=== PATIENT | male | born 1975 | race Caucasian/White ===

== ENCOUNTER 2017-11-12 11:00 | Emergency (ER) | payer OTHER, SELFPAY ==
[2017-11-12 11:28] VITALS: BP 134/84; PULSE 75; RESP 16; TEMP 37.1; O2SAT 98
--- NOTE | 2017-11-12 11:48 | DI.RAD_ITS ---
SYMPTOMS/DIAGNOSIS: CRUSH INJURY DISTAL FINGER RIGHT LITTLE FINGER: Three views. There is a nondisplaced fracture of the terminal tuft of the right little finger. There is soft tissue swelling of the right little finger distally. No other fractures or dislocations are seen. No radiopaque foreign bodies are seen in the soft tissues. IMPRESSION: Nondisplaced fracture of the terminal tuft of the distal phalanx of the right little finger.
--- NOTE | 2017-11-12 11:50 | W.ED.GENAD ---
Discharge Plan Disposition Patient Disposition: HOME Condition: Fair Discharge Details Chief Complaint: Orthopedic Clinical Impression: Closed fracture of tuft of distal phalanx of finger Primary Care Provider: Andrew Angela ED Provider: Radha Torres Home Meds and New Rx's Prescriptions: Continue epinephrine 0.3 MG/0.3 ML auto-injector 0.3 mg IM PRN RF: 0 fluticasone [Flovent HFA] 12 GM HFA aerosol inhaler 2 puff Inhalation BID Qty: 1 RF: 11 albuterol sulfate [ProAir HFA] 8.5 GM HFA aerosol inhaler 2 puff Inhalation Q4H PRN Qty: 3 RF: 4 Diclofenac Sodium 50 MG TABLET.DR 50 mg PO TID Qty: 30 RF: 0 Discharge Instructions Instructions: Finger Fracture (ED) Additional Instructions: Encourage rest, ice, elevation. Tylenol and/or ibuprofen as needed for discomfort. Keep splint on until evaluated by orthopedics. Please call orthopedics tomorrow to schedule follow-up appointment. Please monitor for signs of infection including fever/chills, increased pain, discharge, redness or other new/worsening symptoms. If these arise please seek care urgently once again. Referrals: Alex Corbett MD [ [facility]FF [facility]YSICIAN] - ([phone]) Discharge Data Discharge Date/Time-TO BE ENTERED AT DEPARTURE: 11/12/17 14:00 Medical Decision Making MDM Narrative Medical decision making narrative: Patient presents today with chief complaint of right pinky pain. He reports that 2 days ago he crushed the finger. On exam, he has notable swelling, ecchymosis circumferentially about the distal phalanx of the right fifth digit. Sensation is intact. He was questioning trephination of the nail but the ecchymosis under the nail is quite minimal and located just at the nail bed. Advised against trephination at this time as it is unlikely to help with his discomfort. Patient has not taken anything as of yet for discomfort. He will be given ibuprofen, Tylenol and will obtain imaging of the affected finger X-ray reviewed by myself as well as radiologist, this is significant for fracture to the distal tuft of the distal phalanx. Nondisplaced Reviewed findings with the patient. He will be placed in a splint and follow-up with orthopedics. Encouraged rest, ice, elevation. Tylenol and/or ibuprofen as needed for discomfort. Patient tetanus is not today, we will update this today. We discussed signs symptoms of infection when to seek care urgently once again. He will contact orthopedics today to schedule follow-up. All questions and concerns were addressed and he is in agreement with this plan. HPI - General Adult General Mode of arrival: ambulatory. Date/Time Provider Initiated Documentation: 11/12/17 11:43. Limitations to Documentation: no limitations. Information obtained by: patient. HPI Narrative: Patient is a 42-year-old [id number]-[id number] male presenting today with chief complaint of right pinky finger injury. He reports that 2 days ago, while at work, he dropped a 30 pound part on the digit. Since that time has been ecchymosis, swelling and pain over the distal phalanx. Denies any altered sensation. Denies other injury at the time of the incident. Reports that he did have blood extruding from the distal aspect of the nail initially. This is since subsided. Denies any fevers or chills Related Data Home Medications Medication Instructions Recorded Confirmed epinephrine 0.3 mg IM PRN 12/10/13 11/12/17 fluticasone [Flovent HFA] 2 puff INHALATION BID #1 inhaler 12/12/13 11/12/17 albuterol sulfate [ProAir HFA] 2 puff INHALATION Q4H PRN #3 07/18/16 11/12/17 inhaler Allergies Allergy/AdvReac Type Severity Reaction Status Date / Time bee pollen Allergy Severe Swelling/Ed Unverified 11/12/17 11:30 clay General Stated Complaint: Orthopedic ALBERT: 5 Review of Systems Constitutional Reports as per HPI, Denies chills and Denies fever(s) Musculoskeletal Reports as per HPI, Denies numbness and Denies tingling Integumentary/Breasts Reports as per HPI Neurologic Reports as per HPI, Denies numbness and Denies tingling PFSH Social History Smoking/Tobacco Use Status: Never Surgical History Tonsillectomy Exam Const General: cooperative, healthy appearing, comfortable, no acute distress, well developed and well groomed Nutritional Appearance: average body habitus Orientation: alert and awake Eyes General: appearance normal, both eyes and all related structures Resp Effort & Inspection: normal respiratory effort, able to speak in complete sentences and no respiratory distress Cardio Rate: regular rate Rhythm: regular rhythm Skin General skin exam: ecchymosis Neuro General: alert and awake Cognition: normal cognition Speech: speech normal Gait: normal gait Sensory Exam: no sensory deficits noted Extrem General: abnormal to inspection (Exam the patient's right upper extremity significant for circumferential ecchymosis with associated swelling at the distal phalanx of the fifth digit. Does have a small circular opening that appears to be a puncture wound on the radial side of the digit. No active bleeding. The nail itself is int) and full ROM Course Vital Signs Temperature 37.1 C 11/12/17 11:28 Pulse 75 11/12/17 11:28 Respiratory Rate 16 11/12/17 11:28 Blood Pressure 134/84 11/12/17 11:28 Pulse Oximetry 98 11/12/17 11:28 Temperature 37.1 C 11/12/17 11:28 Pulse 75 11/12/17 11:28 Respiratory Rate 16 11/12/17 11:28 Blood Pressure 134/84 11/12/17 11:28 Pulse Oximetry 98 11/12/17 11:28
--- NOTE | 2017-11-12 11:53 | ED.GENADUL_ITS ---
Discharge Plan Disposition Patient Disposition: HOME Condition: Fair Discharge Details Chief Complaint: Orthopedic Clinical Impression: Closed fracture of tuft of distal phalanx of finger Primary Care Provider: Andrew Angela ED Provider: Radha Torres Home Meds and New Rx's Prescriptions: Continue epinephrine 0.3 MG/0.3 ML auto-injector 0.3 mg IM PRN RF: 0 fluticasone [Flovent HFA] 12 GM HFA aerosol inhaler 2 puff Inhalation BID Qty: 1 RF: 11 albuterol sulfate [ProAir HFA] 8.5 GM HFA aerosol inhaler 2 puff Inhalation Q4H PRN Qty: 3 RF: 4 Diclofenac Sodium 50 MG TABLET.DR 50 mg PO TID Qty: 30 RF: 0 Discharge Instructions Instructions: Finger Fracture (ED) Additional Instructions: Encourage rest, ice, elevation. Tylenol and/or ibuprofen as needed for discomfort. Keep splint on until evaluated by orthopedics. Please call orthopedics tomorrow to schedule follow-up appointment. Please monitor for signs of infection including fever/chills, increased pain, discharge, redness or other new/worsening symptoms. If these arise please seek care urgently once again. Referrals: Alex Corbett MD [ [facility] STAFF PHYSICIAN] - ([phone]) Discharge Data Discharge Date/Time-TO BE ENTERED AT DEPARTURE: 11/12/17 14:00 Medical Decision Making MDM Narrative Medical decision making narrative: Patient presents today with chief complaint of right pinky pain. He reports that 2 days ago he crushed the finger. On exam , he has notable swelling, ecchymosis circumferentially about the distal phalanx of the right fifth digit. Sensation is intact. He was questioning trephination of the nail but the ecchymosis under the nail is quite minimal and located just at the nail bed. Advised against trephination at this time as it is unlikely to help with his discomfort. Patient has not taken anything as of yet for discomfort. He will be given ibuprofen, Tylenol and will obtain imaging of the affected finger X-ray reviewed by myself as well as radiologist, this is significant for fracture to the distal tuft of the distal phalanx. Nondisplaced Reviewed findings with the patient. He will be placed in a splint and follow- up with orthopedics. Encouraged rest, ice, elevation. Tylenol and/or ibuprofen as needed for discomfort. Patient tetanus is not today, we will update this today. We discussed signs symptoms of infection when to seek care urgently once again. He will contact orthopedics today to schedule follow-up. All questions and concerns were addressed and he is in agreement with this plan. HPI - General Adult General Mode of arrival: ambulatory . Date/Time Provider Initiated Documentation: 11/12/17 11:43 . Limitations to Documentation: no limitations . Information obtained by: patient . HPI Narrative: Patient is a 42-year-old xulug-[id number] male presenting today with chief complaint of right pinky finger injury. He reports that 2 days ago, while at work, he dropped a 30 pound part on the digit. Since that time has been ecchymosis, swelling and pain over the distal phalanx. Denies any altered sensation. Denies other injury at the time of the incident. Reports that he did have blood extruding from the distal aspect of the nail initially. This is since subsided. Denies any fevers or chills Related Data Home Medications Medication Instructions Recorded Confirmed epinephrine 0.3 mg IM PRN 12/10/13 11/12/17 fluticasone [Flovent HFA] 2 puff INHALATION BID #1 inhaler 12/12/13 11/12/17 albuterol sulfate [ProAir HFA] 2 puff INHALATION Q4H PRN #3 07/18/16 11/12/17 inhaler Allergies Allergy/AdvReac Type Severity Reaction Status Date / Time bee pollen Allergy Severe Swelling/Ed Unverified 11/12/17 11:30 clay General Stated Complaint: Orthopedic ALBERT: 5 Review of Systems Constitutional Reports as per HPI, Denies chills and Denies fever(s) Musculoskeletal Reports as per HPI, Denies numbness and Denies tingling Integumentary/Breasts Reports as per HPI Neurologic Reports as per HPI, Denies numbness and Denies tingling PFSH Social History Smoking/Tobacco Use Status: Never Surgical History Tonsillectomy Exam Const General: cooperative, healthy appearing, comfortable, no acute distress, well developed and well groomed Nutritional Appearance: average body habitus Orientation: alert and awake Eyes General: appearance normal, both eyes and all related structures Resp Effort & Inspection: normal respiratory effort, able to speak in complete sentences and no respiratory distress Cardio Rate: regular rate Rhythm: regular rhythm Skin General skin exam: ecchymosis Neuro General: alert and awake Cognition: normal cognition Speech: speech normal Gait: normal gait Sensory Exam: no sensory deficits noted Extrem General: abnormal to inspection (Exam the patient's right upper extremity significant for circumferential ecchymosis with associated swelling at the distal phalanx of the fifth digit. Does have a small circular opening that appears to be a puncture wound on the radial side of the digit. No active bleeding. The nail itself is int) and full ROM Course Vital Signs Temperature 37.1 C 11/12/17 11:28 Pulse 75 11/12/17 11:28 Respiratory Rate 16 11/12/17 11:28 Blood Pressure 134/84 11/12/17 11:28 Pulse Oximetry 98 11/12/17 11:28 Temperature 37.1 C 11/12/17 11:28 Pulse 75 11/12/17 11:28 Respiratory Rate 16 11/12/17 11:28 Blood Pressure 134/84 11/12/17 11:28 Pulse Oximetry 98 11/12/17 11:28
[2017-11-12] MEDS: Acetaminophen 500 MG TAB 1000 MG PO (12:02)
[2017-11-12] MEDS: Ibuprofen 600 MG TAB PO (12:03)
== END 2017-11-12 14:00 | disposition home or self-care (01) ==
PROVIDERS: Emergency Provider Physician Assistant; PCP Family Medicine
DX: S67.196A Crushing injury of right little finger, initial encounter (principal); S62.666A Nondisplaced fracture of distal phalanx of right little finger, initial encounter for closed fracture; W20.8XXA Other cause of strike by thrown, projected or falling object, initial encounter; Y99.0 Civilian activity done for income or pay
CPT/HCPCS: 29130; 90471; 99284; 73140; 99282

== ENCOUNTER 2021-12-27 15:04 | Outpatient (CLI) | payer BC, SELFPAY ==
--- NOTE | 2021-12-27 09:40 | DI.RAD_ITS ---
Exam(s) XR SHOULDER LT COMPLETE 2+V EXAM: XR SHOULDER LT COMPLETE 2+V CLINICAL HISTORY: Pain to left shoulder denies trauma M25.512. TECHNIQUE: 2D digital imaging was performed. COMPARISON: No exams were available for comparison FINDINGS: Five views: No evidence of fracture or dislocation nor abnormal soft tissue calcifications. No degenerative hernandez ges evident in the glenohumeral and AC joints. Bone density normal. No osseous lesions. No os acro miale. IMPRESSION: No significant radiographic findings. DATA REPOSITORY: RADIATION DOSE DELIVERED:
== END 2021-12-27 15:24 ==
PROVIDERS: PCP Nurse Practitioner Family; Visit Provider Nurse Practitioner Family
DX: M25.512 Pain in left shoulder (principal)
CPT/HCPCS: 73030

== ENCOUNTER 2021-12-30 01:35 | Outpatient (CLI) | payer BC, SELFPAY ==
[2021-12-30 12:51] LABS: ALT 58 U/L (16-63); AST 20 U/L (15-37); Alkaline Phosphatase 84 U/L (46-116); Anion Gap 8.5 mmol/L (3-11); BUN 19 mg/dL (7-18); Bilirubin, Total 0.4 mg/dL (0.2-1.0); CO2 26.5 mmol/L (21.0-32.0); Calcium 9.3 mg/dL (8.5-10.1); Calculated LDL 110 mg/dL (<100); Chloride 103 mmol/L (98-107); Cholesterol 203 mg/dL (<200); Estimated GFR 94.59 (mL/min/1.73m2); Glucose 91 mg/dL (74-106); HDL Cholesterol 65 mg/dL (40-60); Potassium 4.2 mmol/L (3.5-5.1); Sodium 138 mmol/L (136-145); TSH (W/Ref FT4) 2.83 uIU/mL (0.36-3.74); Triglyceride 140 mg/dL (<150)
== END 2021-12-30 01:36 | disposition home or self-care (01) ==
LOC: LOS 01:38
PROVIDERS: PCP Nurse Practitioner Family; Visit Provider Nurse Practitioner Family
DX: R10.9 Unspecified abdominal pain (principal); R53.83 Other fatigue; Z13.220 Encounter for screening for lipoid disorders
CPT/HCPCS: 36415; 80053; 80061; 84443

== ENCOUNTER 2022-05-25 12:00 | Outpatient (REF) | payer BC, SELFPAY ==
--- NOTE | 2022-05-25 11:15 | SKI_PTH ---
PATIENT: Fredy Gomez LOC: [facility] U#:[id number] AGE/SX: 47/M ROOM: RE05/25/[address]: Shaw Cueva MD : 1975 BED: DIS: 05/25/2022 SPEC #: [id number] RECD: 05/25/22 18:27 STATUS: HILARIO REPawan #: [id number] DWAINE: 05/25/22 11:[address]: Shaw Cueva DEPT: Surgical Specimen RECD BY: Kristine Perez ENTERED: 05/25/22 18:28 SP TYPE: ANDREA MARI DR: EDUARD Bosch Tissues: 1 - SKIN BIOPSY(SHAVE/PUNCH) Procedures: SKIN LEVEL 4 Comments: [id number]
== END 2022-05-25 12:01 | disposition home or self-care (01) ==
LOC: LBN 12:00
PROVIDERS: PCP Nurse Practitioner Family; Visit Provider Otolaryngology
DX: D23.39 Other benign neoplasm of skin of other parts of face (principal); L98.8 Other specified disorders of the skin and subcutaneous tissue
CPT/HCPCS: 88305

== ENCOUNTER 2023-04-25 10:24 | Outpatient (CLI) | payer BC, SELFPAY ==
[2023-04-25 10:54] LABS: ALT 57 U/L (16-63); AST 23 U/L (15-37); Albumin 3.9 g/dL (3.4-5.0); Alkaline Phosphatase 73 U/L (46-116); Anion Gap 10.7 mmol/L (3-11); BUN 17 mg/dL (7-18); Bilirubin, Total 0.5 mg/dL (0.2-1.0); CO2 26.3 mmol/L (21.0-32.0); CREATININE 1.1 mg/dL (0.70-1.30); Calcium 9.4 mg/dL (8.5-10.1); Calculated LDL 114 mg/dL (<100); Chloride 102 mmol/L (98-107); Cholesterol 216 mg/dL (<200); Estimated GFR 83.84 (mL/min/1.73m2); Glucose 91 mg/dL (74-106); HDL Cholesterol 64 mg/dL (40-60); Sodium 139 mmol/L (136-145); Total Protein 7.9 g/dL (6.4-8.2); Triglyceride 194 mg/dL (<150)
[2023-04-25 17:50] LABS: Hepatitis C Ab w Rflx HCV PCR Negative (Negative)
== END 2023-04-25 10:25 | disposition home or self-care (01) ==
LOC: LBO 10:24
PROVIDERS: PCP Nurse Practitioner Family; Visit Provider Nurse Practitioner Family
DX: Z00.00 Encounter for general adult medical examination without abnormal findings (principal); Z13.1 Encounter for screening for diabetes mellitus; Z13.220 Encounter for screening for lipoid disorders; Z11.59 Encounter for screening for other viral diseases
CPT/HCPCS: 36415; 80053; 80061; 86803; 83036

== ENCOUNTER 2023-12-03 09:45 | Emergency (ER) | payer BC, SELFPAY ==
--- NOTE | 2023-12-03 | DI.RAD_ITS ---
Exam(s) XR ANKLE RT COMPLETE EXAM: XR ANKLE RT COMPLETE CLINICAL HISTORY: twisting injury, b/l pain. TECHNIQUE: 2D digital imaging was performed. COMPARISON: No exams were available for comparison FINDINGS: 3 views There is soft tissue swelling predominantly laterally. No evidence of acute fracture or widening of the ankle mortise. Talar dome unremarkable. There is a corticated triangular osteophytic density immediately subjacent to the medial malleolus me asuring 5 x 4 mm and either from remote avulsion fracture or ununited apophysis. This does not have an acute appearance. There are no abnormal calcific density seen around the lateral malleolus. Os t rigonum incidentally noted. Also noted on the lateral view is calcification at the insertional aspec t of the Achilles tendon on the posterior calcaneus IMPRESSION: 5 x 4 mm non acute appearing finding immediately below the medial malleolus, as described above. Lateral soft tissue swelling but no obvious acute fractures evident. DATA REPOSITORY: RADIATION DOSE DELIVERED:
[2023-12-03 09:47] VITALS: BP 160/108; PULSE 85; RESP 18; TEMP 35.9; O2SAT 97
--- NOTE | 2023-12-03 10:00 | DI.RAD_ITS ---
Exam(s) XR FOOT RT COMPLETE EXAM: XR FOOT RT COMPLETE CLINICAL HISTORY: Twisting injury, pain over 5th metatarsal. TECHNIQUE: 2D digital imaging was performed. COMPARISON: No exams were available for comparison FINDINGS: 3 views No evidence of acute fracture or diastasis of the Lisfranc joint. The more lateral of the 2 sesamoid bones subjacent to the great toe metatarsal head is noted to be bipartite. Great toe metatarsophala ngeal joint appears unremarkable. No evidence of pes planus no radiopaque foreign bodies. No osseou s lesions. Base of the 5th metatarsal intact. IMPRESSION: No acute osseous findings in the foot. DATA REPOSITORY: RADIATION DOSE DELIVERED:
--- NOTE | 2023-12-03 10:00 | W.ED.GENAD ---
Discharge Plan Disposition Patient Disposition: Home Condition: Stable Discharge Details Clinical Impression: Ankle sprain Primary Care Provider: Caroline Basilio ED Provider: Ines Dunne Home Meds and New Rx's Prescriptions: No Action ibuprofen 600 mg tablet 600 mg PO Q6H PRN (Reason: pain) Qty: 40 0RF Zepbound 2.5 mg/0.5 mL pen injector 2.5 mg subcut QWEEK Qty: 2 0RF albuterol sulfate [ProAir HFA] 90 mcg/actuation HFA aerosol inhaler 2 puff Inhalation Q6H PRN (Reason: shortness of breath or wheezing) Qty: 18 4RF epinephrine 0.3 MG/0.3 ML auto-injector 0.3 mg IM PRN Discharge Instructions Instructions: Ankle Sprain ED Additional Instructions: You were seen in the emergency department today for evaluation of a right ankle injury and were found to have a sprain. In our department a full physical examination performed as well as x-ray imaging, and were placed in a walking boot. You can use this for comfort and can can transition to your Velcro stirrup splint when you are pain starts to improve. Please continue to use Tylenol and ibuprofen as well as ice and elevation for swelling, and follow-up with your primary care provider in the next few days to discuss this visit and any symptoms that change, worsen, or persist. Thank you for allowing us to be part of your care. Stand Alone Forms: Work Release HPI General Mode of arrival: ambulatory. Date/Time Provider Initiated Documentation: 12/03/23 09:48. Limitations to Documentation: no limitations. Information obtained by: patient and old records reviewed. HPI Narrative: HPI: This is a 48-year-old male patient with history of hyperlipidemia and asthma, who is presenting for evaluation of right ankle/foot injury that occurred while playing softball on Sunday. The patient reports that he was running past second base and attempting to turn to going to the outfield, when he experienced a twisting injury of his right ankle. On Sunday he was able to walk on the ankle but he did note pain and swelling both medially and laterally. Yesterday he attempted not to walk on the ankle at all, but noted ongoing swelling and tenderness. He has been managing his pain at home with Tylenol and ibuprofen, has tried ice and has been wearing a Velcro stirrup splint. He states that he tried to go to work today and the pain with weightbearing was too much for him to manage prompting his presentation to care. The patient did not sustain any additional injuries during this event, denies knee pain, hip pain, but does have some lateral foot pain. Otherwise in his normal state of health. Exam: Gen: Awake and alert, in no apparent distress HEENT: Non-icteric sclera Neck: Supple Lungs: No apparent respiratory distress, normal respiratory effort. CV: Appears well perfused Abdomen: Non-distended MSK: Moves 4 extremities without apparent limitation in ROM with the exception of the right ankle, which is painful to both palpation and with passive range of motion. He has tenderness on the posterior aspect of the medial malleolus, notable swelling of the lateral malleolus with pain on the anterior aspect. No anterior pain or pain over the calcaneal tendon, does have pain to palpation over the fifth metatarsal without obvious deformity. The patient has strong DP pulses, full range of motion of the toes. No overlying skin changes otherwise noted besides swelling and ecchymosis Skin: Visualized skin without rashes, cyanosis. Neuro: Normal Gait, no obvious focal deficits or facial asymmetry. Speaks in full, clear sentences. Psych: Appropriate for situation. MDM: This is a 48-year-old male patient presenting for evaluation of an isolated right ankle/foot injury. Differential includes but is not limited to fracture, dislocation, sprain. No evidence of neurovascular derangement on my physical examination, no overlying skin changes concerning for infection. We will provide the patient with ibuprofen as well as ice for swelling, and will obtain x-ray imaging of the affected right ankle and right foot. ED Course: I independently interpreted the patient's x-ray imaging, which did not show any acute fracture, dislocation, or other obvious osseous abnormality. He does have a chronic appearing medial malleoli are fragment consistent with the patient's reported history of fracture of that ankle in the past. The patient was placed in a walking boot and was able to bear weight, will follow-up with primary care provider in the next few days to discuss this visit and any symptoms that change, worsen, or persist. We discussed conservative pain management strategies including Tylenol, ibuprofen, ice and elevation. At this time, the patient has had a full medical evaluation and is safe for discharge to home. They are hemodynamically stable, ambulatory, and tolerating PO. They are understanding of the follow-up plan and return precautions. They left our facility without incident. Ines Dunne MD Related Data Home Medications ?Medication ?Instructions ?Recorded ?Confirmed epinephrine 0.3 mg/0.3 mL 0.3 mg IM PRN 12/10/13 12/03/23 injection, auto-injector ibuprofen 600 mg tablet 600 mg PO Q6H PRN pain #40 tabs 12/27/21 12/03/23 tirzepatide (weight loss) 2.5 2.5 mg (0.5 mL) subcut QWEEK #2 mL 04/20/23 12/03/23 mg/0.5 mL subcutaneous pen injector (Zepbound) albuterol sulfate 90 mcg/actuation 2 puff inhalation Q6H PRN 04/23/23 12/03/23 aerosol inhaler (ProAir HFA) shortness of breath or wheezing #18 grams Previous Rx's ?Medication ?Instructions ?Recorded ibuprofen 600 mg tablet 600 mg PO Q6H PRN pain #40 tabs 12/27/21 tirzepatide (weight loss) 2.5 2.5 mg (0.5 mL) subcut QWEEK #2 mL 04/20/23 mg/0.5 mL subcutaneous pen injector (Zepbound) albuterol sulfate 90 mcg/actuation 2 puff inhalation Q6H PRN 04/23/23 aerosol inhaler (ProAir HFA) shortness of breath or wheezing #18 grams Allergies Allergy/AdvReac Type Severity Reaction Status Date / Time bee pollen Allergy Severe Swelling/Ed Unverified 12/03/23 09:48 clay General Stated Complaint: Orthopedic ALBERT: 4 Course Vital Signs Vital signs: Vital Signs Temperature 35.9 C L 12/03/23 09:47 Pulse 85 12/03/23 09:47 Respiratory Rate 18 12/03/23 09:47 Blood Pressure 160/108 H 12/03/23 09:47 Pulse Oximetry 97 12/03/23 09:47 Temperature 35.9 C L 12/03/23 09:47 Temperature Source Temporal Artery Scan 12/03/23 09:47 Pulse 85 12/03/23 09:47 Respiratory Rate 18 12/03/23 09:47 Respiratory Effort Normal, Non-Labored 12/03/23 09:49 Blood Pressure 160/108 H 12/03/23 09:47 Blood Pressure Position Sitting 12/03/23 09:47 Pulse Oximetry 97 12/03/23 09:47 Oxygen Delivery Method Room Air 12/03/23 09:47 Oxygen Flow Rate 0 12/03/23 09:47 Medical Decision Making Quality:SDOH Health Related Social Needs: No Data to Display PFSH All Active Problems Ankle sprain (Acute) Hyperlipidemia (Chronic) Insomnia (Chronic) Mild intermittent asthma (Chronic) Obesity (BMI 30-39.9) (Chronic) Excessive drinking of alcohol (Chronic) Surgical History S/P hernia repair S/P tonsillectomy Family History Mother No problems noted. Father , 78 Stroke Sister No problems noted. Sister No problems noted. Sister No problems noted. Sister Cancer Unknown type Brother No problems noted. Brother No problems noted. Brother No problems noted. Brother No problems noted. Brother No problems noted. Son No problems noted. Son No problems noted. Daughter No problems noted. Maternal Grandfather No problems noted. Maternal Grandmother No problems noted. Paternal Grandfather No problems noted. Paternal Grandmother No problems noted. Social History (Updated 04/25/23 @ 18:40 by Naheed Jordan) Smoking/Tobacco Use Status: Former Tobacco Use tobacco type: cigarettes and smokeless tobacco Smokeless tobacco user: chewing tobacco and snuff Second Hand Exposure: No Smoking risk assessment performed?: Yes Alcohol Intake: current Alcohol Intake frequency: 3 or more drinks per day Alcohol type: beer and hard liquor Drug use: Never Substance use type: does not use Adopted: No Caregiver/Support person: No Household members: children and friend(s) Housing: house Number of Children: 3 Communication Needs: None Education Level: high school Do you need help understanding health information?: Never 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 Sexually active: Yes Do you think of yourself as: straight/heterosexual Current gender identity: male What is your relationship status?: don't know How often do you talk on the phone with friends or family?: three or more times per week How often do you get together with friends or relatives?: three or more times per week Do you belong to any clubs or organized social groups?: no Panel score (0-1 are the most socially isolated patients): 1 What type of physical activity do you participate in: none Frequency: does not exercise Jacklyn/Samaritan: None Special jacklyn needs: No Seatbelt use: sometimes Helmet use: Yes Helmet use: sometimes Drive intox or ride w/intox driver trainer: Yes Drive intox or w/intox driver trainer: rarely Firearms in home: Yes Firearms unloaded and locked: Yes Do you feel safe at home: Yes Do you feel safe in your relationship?: Yes Victim of physical abuse: No Victim of emotional abuse: No Victim of sexual abuse: No Would you like helpful sources: No
[2023-12-03] MEDS: Ibuprofen 600 MG TAB PO (10:05)
[2023-12-03 11:13] VITALS: BP 128/89; PULSE 71; RESP 18; O2SAT 96
== END 2023-12-03 11:14 | disposition home or self-care (01) ==
PROVIDERS: Emergency Provider Emergency Medicine; PCP Nurse Practitioner Family
DX: S93.401A Sprain of unspecified ligament of right ankle, initial encounter (principal); E78.5 Hyperlipidemia, unspecified; Z87.891 Personal history of nicotine dependence; X50.1XXA Overexertion from prolonged static or awkward postures, initial encounter; Y93.64 Activity, baseball; Y92.320 Baseball field as the place of occurrence of the external cause
CPT/HCPCS: 99283; 73610; 73630